=== PATIENT | female | born 1960 ===

== ENCOUNTER 2024-07-01 10:15 | Inpatient (IN) | payer OTHER ==
[~2024-07-01] VITALS: Ht 162.6 cm; Wt 100.2 kg
[2024-07-01] MEDS ORDERED: LOTREL 5-20 MG1 CAP PO (11:17)
[2024-07-01] MEDS ORDERED: JANUVIA50 MG PO (11:18)
[2024-07-01] MEDS ORDERED: CATAPRES0.3 MG PO (11:18)
[2024-07-01] MEDS ORDERED: LIPITOR20 MG PO (11:18)
[2024-07-12] MEDS ORDERED: CLONIDINE HCL0.2 MG (11:26)
[2024-07-12] MEDS ORDERED: ATORVASTATIN CA10 MG (11:26)
[2024-07-12] MEDS ORDERED: HYDROCHLOROTHIA50 MG (11:27)
[2024-07-12] MEDS ORDERED: BUPIVACAINE HCL 30 ML VIAL IJ ONE (11:30)
[2024-07-12] MEDS ORDERED: levoFLOXacin IN DEXTROSE 5 % 5 MG/ML PIGGYBAG IV ONE (11:30)
[2024-07-12] MEDS ORDERED: METRONIDAZOLE/SODIUM CHLORIDE 500 MG/100 ML PIGGYBACK IV ONE ×2 (11:30)
[2024-07-12] MEDS ORDERED: LIDOCAINE HCL 1%/EPINEPHRINE 20ML VIAL IJ ONE (11:45)
[2024-07-12] MEDS ORDERED: SUGAMMADEX SODIUM 200 MG/2 ML VIAL IV ONE (12:45)
[2024-07-12] MEDS ORDERED: ONDANSETRON HCL 2 MG/ML VIAL IV PRN (13:15)
[2024-07-12] MEDS ORDERED: DEXTROSE 50 % IN WATER 0.5 G/ML DISP.SYRIN IV PRN (13:15)
[2024-07-12] MEDS ORDERED: MORPHINE SULFATE 4 MG/ML CARTRIDGE IV PRN (13:15)
[2024-07-12] MEDS ORDERED: 0.9 % SODIUM CHLORIDE 1,000 ML IV SCH (13:15)
[2024-07-12] MEDS ORDERED: OxyCODONE HCL 5 MG TABLET (ROXICODONE) PO PRN (13:15)
[2024-07-12] MEDS ORDERED: MORPHINE SULFATE 4 MG/ML VIAL IV ONE (13:20)
[2024-07-12] MEDS ORDERED: ACETAMINOPHEN 500 MG GEL..CAP PO SCH (14:00)
[2024-07-12 15:27] LABS: HEMATOCRIT 35.1 % (36.0-45.00); MEAN CELL VOLUME 78.2 fL (80.00-100.00); MEAN CORPUSCULAR HEMOGLOBIN 24.6 pg (27.00-32.0); MEAN CORPUSCULAR HGB CONC 31.5 g/dl (32.0-36.0); PLATELET COUNT 172 K/uL (150-450); RED BLOOD COUNT 4.49 M/uL (4.00-6.00); RED CELL DISTRIBUTION WIDTH 16.2 % (11.5-14.5)
[2024-07-12 15:55] LABS: ALBUMIN 3.3 gm/dL (3.4-5.0); CALCIUM 8.5 mg/dL (8.5-10.1); CREATININE SERUM 0.98 mg/dL (0.55-1.02); GFR 56.78; MAGNESIUM 1.8 mg/dL (1.8-2.4); POTASSIUM 3.78 mEq/L (3.5-5.1)
[2024-07-12] MEDS ORDERED: METRONIDAZOLE/SODIUM CHLORIDE 500 MG/100 ML PIGGYBACK IV SCH (17:00)
[2024-07-12] MEDS ORDERED: POLYETHYLENE GLYCOL 3350 17 GM BLIST.PACK PO SCH (17:00)
[2024-07-12] MEDS ORDERED: GABAPENTIN 300 MG CAPSULE PO SCH (17:00)
[2024-07-12] MEDS ORDERED: HYOSCYAMINE SULFATE 0.125 MG TAB.SUBL SL SCH (17:00)
[2024-07-12 17:47] VITALS: BP 175/79; O2SAT 96
[2024-07-12] MEDS ORDERED: CELECOXIB 200 MG CAPSULE PO SCH (21:00)
[2024-07-12] MEDS ORDERED: FAMOTIDINE/PF 20 MG/2 ML VIAL IV PUSH SCH (21:00)
[2024-07-13 00:15] VITALS: BP 140/76; O2SAT 98
[2024-07-13 05:35] LABS: HEMATOCRIT 33.5 % (36.0-45.00); MEAN CELL VOLUME 77.2 fL (80.00-100.00); MEAN CORPUSCULAR HGB CONC 32.3 g/dl (32.0-36.0); PLATELET COUNT 185 K/uL (150-450); RED BLOOD COUNT 4.34 M/uL (4.00-6.00)
[2024-07-13 05:48] LABS: HEMOGLOBIN 10.8 g/dL (12.0-15.00); MEAN CORPUSCULAR HEMOGLOBIN 24.8 pg (27.00-32.0)
[2024-07-13 06:39] LABS: ALBUMIN 3.2 gm/dL (3.4-5.0); CALCIUM 8.7 mg/dL (8.5-10.1); CREATININE SERUM 0.96 mg/dL (0.55-1.02); GFR 58.15; MAGNESIUM 1.8 mg/dL (1.8-2.4); PHOSPHOROUS 2.9 mg/dL (2.5-4.9); POTASSIUM 3.32 mEq/L (3.5-5.1)
[2024-07-13 10:01] VITALS: BP 171/79; O2SAT 96
[2024-07-13 16:00] VITALS: BP 162/74; O2SAT 98
[2024-07-13] MEDS ORDERED: ENOXAPARIN SODIUM 40 MG/0.4 ML SYRINGE SUBCUTANEO SCH (17:00)
[2024-07-14 00:30] VITALS: BP 139/76; O2SAT 100
[2024-07-14] MEDS ORDERED: ENOXAPARIN SODIUM 40 MG/0.4 ML SYRINGE SUBCUTANEO SCH (09:00)
[2024-07-14 10:53] VITALS: BP 149/71; O2SAT 95
[2024-07-14 16:00] VITALS: BP 150/72; O2SAT 95
[2024-07-15] VITALS: BP 159/72; O2SAT 97
[2024-07-15 08:00] VITALS: BP 132/65; O2SAT 100
[2024-07-15] MEDS ORDERED: KETOROLAC TROMETHAMINE 30 MG VIAL IV STA (12:23)
[2024-07-15] MEDS ORDERED: PEPCID AC20 MG PO (12:24)
[2024-07-15] MEDS ORDERED: TRAM1TAB98 PO (12:24)
[2024-07-15] MEDS ORDERED: HYOSCYAMINE0.125 M1 SL (12:24)
[2024-07-15] MEDS ORDERED: CYCLOBENZAPRINE5 MG PO (12:25)
== END 2024-07-15 15:19 | disposition home or self-care (01) | DRG 330 ==
LOC: O/R 07-12 07:19 → SURH 07-12 10:15
PROVIDERS: ADMIT Surgery; ATTEND Surgery
PROC: 07BB4ZZ Excision of Mesenteric Lymphatic, Percutaneous Endoscopic Approach (ICD-10-PCS; 2024-07-12)
PROC: 0DTF4ZZ Resection of Right Large Intestine, Percutaneous Endoscopic Approach (ICD-10-PCS; principal; 2024-07-12 14:15)
DX: C18.2 Malignant neoplasm of ascending colon (principal); K92.1 Melena; R59.0 Localized enlarged lymph nodes